=== PATIENT | female | born 1960 | race Caucasian/White ===

== ENCOUNTER 2016-08-29 09:03 | Day surgery (SDC) | payer OTHER ==
[~2016-08-29 09:03] MED LIST: PROPOFOL 500 MG/50 ML EMU IV ONE
[2016-08-29 10:32] VITALS: PULSE 61
[2016-08-29 10:46] VITALS: BP 151/80; RESP 18; TEMP 97.5; O2SAT 98
== END 2016-08-29 11:30 | disposition home or self-care (01) | DRG 951 ==
LOC: SURG 09:03
PROVIDERS: ATTEND Surgery
DX: Z12.11 Encounter for screening for malignant neoplasm of colon (principal); Z86.010 Personal history of colon polyps
CPT/HCPCS: J2704